=== PATIENT | female | born 1955 | race Caucasian/White ===

== ENCOUNTER 2021-08-20 09:12 | Emergency (ER) | payer MEDICARE, OTHER ==
[~2021-08-20] VITALS: Ht 175.3 cm; Wt 83.9 kg
[2021-08-20 09:12] VITALS: BP 139/80
--- NOTE | 2021-08-20 09:12 | NUR ---
ARRIVAL PATIENT ARRIVED TO [facility], C/O COUGH FOR THE PAST 3-4 DAYS, HAS BEEN TAKING OVER THE COUNTER COUGH MEDICATIONS WITH MINIMAL RELIEF, CAME TO THE ED FOR EVAL, VITAL SIGNS OBTAINED AND DOCTOR NOTIFIED OF PATIENT'S ARRIVAL.
[2021-08-20] MEDS ORDERED: KENALOG-40 ONE (09:38)
[2021-08-20] MEDS: KENALOG-40 IM ONE (09:42)
--- NOTE | 2021-08-20 09:45 | ER.PDOC ---
General Chief Complaint: Cough/Congestion Stated Complaint: COUGH TRAVEL OUT OF US: No Time seen by MD: 09:40 Source: patient Exam Limitations: no limitations History of Present Illness Initial Comments This 66-year-old female comes here with 4 days of progressing cough. Nonproductive. No fever and no chills. She has some chest pain when she coughs. No sick contact. She feels very congested. Feels her neck also very tight. She has cardiac work-up in the past indicate is negative. Denies any other complaint. Symptoms are not associated with activity. No abdominal pain. No nausea no vomiting. No shortness of breath. Patient has tried podw-[id number]-xaetnkl cough medication for 4 days with no improvement. Patient also takes allergy medication which include daem-tua-mqlcgct antihistamine and Flonase. Allergies: Coded Allergies: Penicillins (Unverified Allergy, Unknown, ., 08/20/21) Sulfa (Sulfonamide Antibiotics) (Verified Allergy, Unknown, 08/20/21) codeine (Verified Allergy, Unknown, 08/20/21) Past Medical History Medical History: cancer, thyroid disease Surgical History: cancer surgery, other LMP (females 10-50): Menopause Family History Significant Family History: no pertinent family hx Social History Smoking: non-smoker Alcohol Use: none Drug Use: none Reviewed Nursing Reviewed: Vital Signs, Abn. Noted, Nursing Assessment Review of Systems Constitutional: denies no symptoms reported, denies see HPI, denies chills, denies diaphoresis, denies fever, denies malaise, denies weakness, denies other EENTM: denies no symptoms reported, denies see HPI, denies eye pain, denies blurred vision, denies tearing, denies double vision, denies ear pain, denies ear discharge, denies nose pain, denies nose congestion, denies throat pain, denies throat swelling, denies mouth pain, denies mouth swelling, denies other Respiratory: denies no symptoms reported, denies see HPI; cough; denies orthopnea; shortness of breath; denies stridor, denies wheezing, denies other Cardiovascular: denies no symptoms reported, denies see HPI, denies chest pain, denies edema, denies palpitations, denies syncope, denies other Gastrointestinal: denies no symptoms reported, denies see HPI, denies abdominal pain, denies constipation, denies diarrhea, denies nausea, denies vomiting, denies other Genitourinary: denies no symptoms reported, denies see HPI, denies discharge, denies dysuria, denies frequency, denies hematuria, denies pain, denies other Musculoskeletal: denies no symptoms reported, denies see HPI, denies back pain, denies gout, denies joint pain, denies joint swelling, denies muscle pain, denies muscle stiffness, denies neck pain, denies other Skin: denies no symptoms reported, denies see HPI, denies change in color, denies change in hair/nails, denies dryness, denies lesions, denies lumps, denies rash, denies other Psychiatric/Neurological: denies no symptoms reported, denies see HPI, denies anxiety, denies depressed, denies emotional problems, denies headache, denies numbness, denies paresthesia, denies pre-existing deficit, denies seizure, denies tingling, denies tremors, denies weakness, denies other Hematologic/Lymphatic: denies no symptoms reported, denies see HPI, denies anemia, denies blood clots, denies easy bleeding, denies easy bruising, denies swollen glands, denies other Immunological/Allergic: denies no symptoms reported, denies see HPI, denies food allergy, denies grass allergy, denies mold allergy, denies pollen allergy, denies HIV/AIDS, denies transplant All Other Systems: Reviewed and Negative Physical Exam General Appearance: No Apparent Distress, WD/WN EENT: eyes nml inspection, nml ENT inspection Neck: Non-Tender, Full Range of Motion, Supple, Normal Inspection Respiratory: no respiratory distress, no accessory muscle use, rhonchi CVS: reg rate & rhythm, no murmur, no gallop, pulses nml, nml capillary refill Gastrointestinal: Normal Bowel Sounds, No Organomegaly Extremities: Normal Range of Motion, Non-Tender, Normal Inspection Neurologic/Psychiatric: 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 NML as Tested, No Motor/Sensory Deficits, Alert, Normal Mood/Affect, Oriented x 3 Skin: Normal Color, Warm/Dry, Cyanosis Results/Orders Results/Orders Orders - DEJUAN SIMPSON MD Triamcinolone Acetonide (Kenalog-40) (08/20/21 09:38) Triamcinolone Acetonide (Kenalog-40) (08/20/21 10:00) Vital Signs Date Time Temp Pulse Resp B/P (MAP) Pulse Ox O2 Delivery O2 Flow Rate FiO2 08/20/21 09:12 98.5 81 20 139/80 (99) 95 Room Air* 0 21 08/20/21 09:12 98.5 81 20 95 08/20/21 09:12 98.5 81 20 Progress Progress she has very loud ronchi will treat as bacterial bronchitis ER DEPART Departure Time of Disposition: 09:44 Disposition: 01 HOME / SELF CARE / HOMELESS Impression: Primary Impression: Acute bronchitis Condition: Stable Patient Instructions: Bronchitis, [id number]-[id number] Referrals: PCP,UNKNOWN (PCP) PRIMARY CARE PROVIDER Additional Instructions: Keep yourself hydrated Take qqua-txd-wrripnw Tylenol and or ibuprofen as needed for pain Continue with hsyt-hru-xdennkr cough medication as needed Continue your allergy medications Return to the hospital if any new symptoms develop Duration or Time Spent with Pa: 15 min DEJUAN SIMPSON MD Aug 20, 2021 09:45
[2021-08-20 09:50] VITALS: BP 139/80
== END 2021-08-20 09:51 | disposition home or self-care (01) ==
LOC: ER 09:12
DX: J20.9 Acute bronchitis, unspecified (principal); E07.9 Disorder of thyroid, unspecified; Z88.0 Allergy status to penicillin; Z88.2 Allergy status to sulfonamides; Z88.5 Allergy status to narcotic agent
CPT/HCPCS: 96372; 99283; J3301